=== PATIENT | male | born 1980 | race Caucasian/White ===

== ENCOUNTER 2017-10-19 13:43 | Emergency (ER) | payer MEDICAID ==
[2017-10-19] MEDS ORDERED: HALOPERIDOL LACT 5 MG/ML INJ IM ONE (14:16)
--- NOTE | 2017-10-19 14:18 | EDPHY ---
H & P Time Seen by Provider: 10/19/17 13:59 HPI/ROS: CHIEF COMPLAINT: Acute psychosis, M1, "Fuck off" HISTORY OF PRESENT ILLNESS: 36-year-old male with possible history of schizoaffective disorder or schizophrenia arrives via police on an M1 hold after he was found to be acting erratically in the [employer], threatening physical violence to individuals, thought to be acutely psychotic by police and EMS. Here in emergency department patient is unable to provide history himself as he is quite agitated, pacing, throwing objects in the room, yelling. REVIEW OF SYSTEMS: Review of systems is limited secondary to the patient's agitation PAST MEDICAL & SURGICAL HISTORY: schizoaffective or schizophrenia history SOCIAL HISTORY: Homeless PHYSICAL EXAM (Prior to examination, patient consented to physical exam, hands were washed and my usual and customary physical exam procedures followed) Patient examined after IM Haldol administered as he was post an imminent danger to staff previously. 1) GENERAL: Poorly kept, yelling,foul smelling, threatening behavior 2) HEAD: Normocephalic, atraumatic 3) HEENT: Pupils equal, round, reactive to light bilaterally. Sclera anicteric. 4) NECK: Full range of motion, no meningeal signs. 5) LUNGS: Clear auscultation bilaterally, no wheezes, no rhonchi, no retractions. 6) HEART: Regular rate and rhythm, no murmur, no heave, no gallop. 7) ABDOMEN: No guarding, no rebound, no focal tenderness, 8) MUSCULOSKELETAL: No peripheral edema or discoloration. 9) BACK: No CVA tenderness. 10) SKIN: No rash, no petechiae. 11) Psychiatric: Patient is agitated DIFFERENTIAL DIAGNOSIS: No particular include but limited to depression, suicidal ideation, homicidal ideation, psychosis, peter (Bryant,Nataly Lucia) Constitutional: Initial Vital Signs Temperature (C) 36.6 C 10/19/17 14:13 Heart Rate 74 10/19/17 14:13 Respiratory Rate 18 10/19/17 14:13 Blood Pressure 114/64 10/19/17 14:13 O2 Sat (%) 98 01/13/18 14:13 O2 Delivery Mode Room Air Allergies/Adverse Reactions: No Known Allergies Allergy (Unverified 10/19/17 14:12) Home Medications: Medication Instructions Recorded NK [No Known Home Meds] 10/19/17 Medical Decision Making ED Course/Re-evaluation: 2:19 p.m.: Patient is quite agitated at this time. I am unable to assess him. For the safety of the patient and emergency department staff patient will be given intramuscular Haldol. CORHIO search is negative for this patient. 4:48 p.m.: Patient re-evaluated with serial examinations. He is given IM Haldol at this time he is much more calm. He is sleeping, easily woken. He continues to curse at me. Creatinine kinase was obtained on this patient showing mild nontraumatic rhabdomyolysis. He is also noted to be volume depleted with a BUN creatinine ratio greater than 20. I discussed this case with Dr. Shetty in the ER. Plan will be IV hydration, recheck CK levels later in his emergency department course. 6:00 p.m.: Care turned over to Dr. Shetty (Nataly Hurtado) [id number]: Patient has been seen evaluated by mental health. They do not feel that he needs to be further on an M1 hold. They would like to clear him for discharge. The patient is not suicidal or homicidal. Contracts for safety. I met with him. He is pleasant. He states that he would like to be discharged from the emergency room he would like to go make camp. He has no complaints at this time. He does understand to return emergency room if he has any worsening symptoms questions or concerns. (Loy Rodriguez) Other Provider: 1800 care assumed by me from BIANCA Hurtado. Patient found acutely psychotic at [employer]. Patient has an elevated CK consistent with some mild rhabdomyolysis with normal renal function. He has required significant amount of sedation here. He is given IV fluid hydration. He will need Re checking of his CK to make sure it is improving. [address] patient signed out to Dr. Rodriguez pending reassessment of his CK and mental health evaluation. No issues during my care this patient. (Nicolás Shetty) - Data Points Laboratory Results: Laboratory Results 10/19/17 14:00 10/19/17 14:00 10/20/17 10/19/17 00:56 14:00 Creatine Kinase 1338 IU/L H IU/L (0-224) CK-MB (CK-2) Fraction 7.43 ng/mL H ng/mL (0.00-3.19) CK-MB (CK-2) % 0.6 % % (0.0-4.0) Creatine Kinase Interp NEGATIVE (NEGATIVE) Urine Color YELLOW Urine Appearance HAZY Urine pH 5.0 (5.0-7.5) Ur Specific [place] 1.029 (1.002-1.030) Urine Protein 1+ H (NEGATIVE) Urine Ketones TRACE H (NEGATIVE) Urine Blood NEGATIVE (NEGATIVE) Urine Nitrate NEGATIVE (NEGATIVE) Urine Bilirubin NEGATIVE (NEGATIVE) Urine Urobilinogen 2.0 EU H EU (0.2-1.0) Ur Leukocyte Esterase NEGATIVE (NEGATIVE) Urine RBC 3-5 /hpf H /hpf (0-3) Urine WBC 1-3 /hpf /hpf (0-3) Ur Epithelial Cells NONE SEEN /lpf /lpf (NONE-1+) Urine Bacteria TRACE /hpf H /hpf (NONE SEEN) Hyaline Casts 25-50 /lpf H /lpf (0-1) Urine Mucus 4+ /lpf H /lpf (NONE-1+) Urine Sperm PRESENT /hpf /hpf (NONE SEEN) Urine Glucose NEGATIVE (NEGATIVE) Medications Given: Discontinued Medications Haloperidol Lactate (Haldol Injection) 10 mg IM EDNOW ONE Stop: 10/19/17 14:17 Last Admin: 10/19/17 14:35 Dose: 10 mg Sodium Chloride (Ns) 3,000 mls @ 0 mls/hr IV ONCE ONE PRN Reason: Wide Open Stop: 10/19/17 16:48 Last Admin: 10/19/17 18:46 Dose: Not Given Sodium Chloride (Ns) 1,000 mls @ 0 mls/hr IV ONCE ONE PRN Reason: Wide Open Stop: 10/19/17 16:48 Last Admin: 10/19/17 17:06 Dose: 1,000 mls Sodium Chloride (Ns) 1,000 mls @ 0 mls/hr IV ONCE ONE PRN Reason: Wide Open Stop: 10/19/17 16:49 Last Admin: 10/19/17 17:06 Dose: 1,000 mls Sodium Chloride (Ns) 1,000 mls @ 0 mls/hr IV ONCE ONE PRN Reason: Wide Open Stop: 10/19/17 17:01 Last Admin: 10/19/17 18:47 Dose: 1,000 mls Sodium Chloride (Ns) 1,000 mls @ 0 mls/hr IV ONCE ONE PRN Reason: Wide Open Stop: 10/19/17 21:30 Last Admin: 10/19/17 21:29 Dose: 1,000 mls Departure - Departure Disposition: Home, Routine, Self-Care Clinical Impression: Acute psychosis Rhabdomyolysis Qualifiers: Rhabdomyolysis type: non-traumatic Qualified Code(s): M62.82 - Rhabdomyolysis Condition: Fair Instructions: Rhabdomyolysis (ED) Additional Instructions: 1. Drink lots of fluids stay well-hydrated. 2. Return emergency room if there is any worsening symptoms questions or concerns you do not feel good. 3. Return if you have thoughts of wanting to harm herself or anybody else. Referrals: Patient,NotPresent [Primary Care Provider] - As per Instructions
[2017-10-19 14:19] LABS: PLATELET COUNT 313 10^3/uL (150-400)
[2017-10-19 15:02] LABS: CREATINE KINASE 3387 IU/L (0-224)
[2017-10-19] MEDS ORDERED: NS 1,000 ML IV ONE ×4 (16:47→21:29)
[2017-10-19] MEDS ORDERED: NS 3,000 ML IV ONE (16:47)
[2017-10-19 23:51] VITALS: RESP 16
[2017-10-20 02:03] LABS: CREATINE KINASE 1338 IU/L (0-224)
[2017-10-20 03:50] VITALS: BP 95/65; PULSE 81; TEMP 97.7; O2SAT 94
== END 2017-10-20 03:48 | disposition home or self-care (01) ==
DX: F23 Brief psychotic disorder (principal); M62.82 Rhabdomyolysis
CPT/HCPCS: 80305; G0480; J1630

== ENCOUNTER 2018-06-27 09:21 | Inpatient (IN) | payer MEDICAID, OTHER ==
[2018-06-27] MEDS ORDERED: LORazepam 1 MG TAB PO ONE (09:31)
[2018-06-27] MEDS ORDERED: OLANZapine DISINTEGR 5 MG TAB PO ONE (09:31)
--- NOTE | 2018-06-27 09:34 | EDPHY ---
H & P Time Seen by Provider: 06/27/18 09:24 HPI/ROS: CHIEF COMPLAINT: M1, "Oh man, it's not like that, yes it is" HISTORY OF PRESENT ILLNESS: 37-year-old male possible history of schizoaffective disorder or schizophrenia arrives via police on an M1 hold after he was found outside of a store appeared to be talking to himself and was intermittently agitated acting erratically. He did not threaten physical violence to anyone. Patient has previously been in the emergency department, last date 10/19/2017 which point he was on M1 hold. That time he was also found to be experiencing mild rhabdomyolysis. Here in the emergency department he denies complaints of pain or discomfort. Denies suicidal homicidal ideation. The history is challenging to obtain on this patient as he repeatedly appears to be responding to internal stimuli, will repeatedly talk to and become aggressive with an individual that I am unable to visualize, in the corner of the room. Suspect visual and auditory hallucination. REVIEW OF SYSTEMS: 10 systems reviewed and negative with the exception of the elements mentioned in the history of present illness PAST MEDICAL & SURGICAL HISTORY: Schizophrenia or schizoaffective disorder. Prior rhabdomyolysis history SOCIAL HISTORY: Homeless PHYSICAL EXAM (Prior to examination, patient consented to physical exam, hands were washed and my usual and customary physical exam procedures followed) 1) GENERAL: poorly kept, dirty, foul smelling, pacing, appears to be responding to internal stimuli 2) HEAD: Normocephalic, atraumatic 3) HEENT: Pupils equal, round, reactive to light bilaterally. Sclera anicteric. No raccoon eyes no Velásquez sign. No rhinorrhea. No hemotympanum. No otorrhea. 4) NECK: Full range of motion, no meningeal signs. Midline C-spine pain. 5) LUNGS: Clear auscultation bilaterally, no wheezes, no rhonchi, no retractions. 6) HEART: Regular rate and rhythm, no murmur, no heave, no gallop. 7) ABDOMEN: No guarding, no rebound, no focal tenderness, negative McBurney's, negative Ley's, negative Rovsing's, negative peritoneal sign, 8) MUSCULOSKELETAL: Soft compartments throughout. No ecchymosis or signs of obvious trauma. Moving all extremities, no focal areas of tenderness, no obvious trauma. No peripheral edema or discoloration. 9) BACK: No CVA tenderness, no midline vertebral tenderness, no fluctuance, no step-off, no obvious trauma, no visual or palpable abnormality. 10) SKIN: dirty No rash, no petechiae. 11) Psychiatric: Patient is oriented X 3, intermittently agitated, which appears to be responding to internal stimuli, he will repeatedly turned away from me and have a conversation with someone in the corner of the room, although there is nobody that I can visualize. DIFFERENTIAL DIAGNOSIS: In no particular order include but limited to psychosis, peter, trauma, rhabdomyolysis - Medical/Surgical History Hx Asthma: No Hx Chronic Respiratory Disease: No Hx Diabetes: No Hx Cardiac Disease: No Hx Renal Disease: No Hx Cirrhosis: No Hx Alcoholism: No Hx HIV/AIDS: No Hx Splenectomy or Spleen Trauma: No Other PMH: Non Compliant With Psych Meds, Schitzophrenia - Social History Smoking Status: Unknown if ever smoked Constitutional: Initial Vital Signs Temperature (C) 36.6 C 06/27/18 09:21 Heart Rate 86 06/27/18 09:21 Respiratory Rate 16 06/27/18 09:21 Blood Pressure 110/75 06/27/18 09:21 O2 Sat (%) 96 06/27/18 09:21 O2 Delivery Mode Room Air Allergies/Adverse Reactions: No Known Allergies Allergy (Unverified 10/19/17 14:12) Home Medications: Medication Instructions Recorded NK [No Known Home Meds] 10/19/17 Medical Decision Making ED Course/Re-evaluation: 9:34 a.m.: I reviewed the patient's old medical records. Does appear to be acutely psychotic and is in on an M1 hold. Will obtain laboratory studies including CK as he has prior history of rhabdomyolysis and is currently agitated. He does agree at this time to oral antipsychotic. I saw this patient independently based on established practice protocols. Care of patient under supervision of secondary supervising physician Dr Ruano with whom I discussed case. 10:06 a.m.: Patient declined oral medication. He has previously responded well to 10 mg of intramuscular Haldol which will be administered. 12:20 p.m.: Patient comp cooperative. His CK returned at this time of 23,000. He has a orior history of rhabdomyolysis. He is unable provide history of intoxicants use. Awaiting urine from the patient. No toxicology results beyondnegative serum acetaminophen, salicylate, alcohol levels. Will plan on admission. Case discussed with Dr. Ruano. IV fluids going at this time 1:15 p.m.: Consultation with hospitalist Dr. Gr who will admit patient to the ICU under his care - Data Points Laboratory Results: Laboratory Results 06/27/18 09:50 06/27/18 09:50 06/27/18 06/27/18 09:50 09:50 WBC 11.51 10^3/uL H 10^3/uL (3.80-9.50) RBC 4.70 10^6/uL 10^6/uL (4.40-6.38) Hgb 15.0 g/dL g/dL (13.7-17.5) Hct 43.3 % % (40.0-51.0) MCV 92.1 fL fL (81.5-99.8) MCH 31.9 pg pg (27.9-34.1) MCHC 34.6 g/dL g/dL (32.4-36.7) RDW 12.3 % % (11.5-15.2) Plt Count 220 10^3/uL 10^3/uL (150-400) MPV 9.9 fL fL (8.7-11.7) Neut % (Auto) 72.2 % % (39.3-74.2) Lymph % (Auto) 17.5 % % (15.0-45.0) Josephine % (Auto) 9.1 % % (4.5-13.0) Eos % (Auto) 0.1 % L % (0.6-7.6) Baso % (Auto) 0.3 % % (0.3-1.7) Nucleat RBC Rel Count 0.0 % % (0.0-0.2) Absolute Neuts (auto) 8.30 10^3/uL H 10^3/uL (1.70-6.50) Absolute Lymphs (auto) 2.02 10^3/uL 10^3/uL (1.00-3.00) Absolute Monos (auto) 1.05 10^3/uL H 10^3/uL (0.30-0.80) Absolute Eos (auto) 0.01 10^3/uL L 10^3/uL (0.03-0.40) Absolute Basos (auto) 0.04 10^3/uL 10^3/uL (0.02-0.10) Absolute Nucleated RBC 0.00 10^3/uL 10^3/uL (0-0.01) Immature Gran % 0.8 % % (0.0-1.1) Immature Gran # 0.09 10^3/uL 10^3/uL (0.00-0.10) Sodium 142 mEq/L mEq/L (135-145) Potassium 4.0 mEq/L mEq/L (3.3-5.0) Chloride 101 mEq/L mEq/L (97-110) Carbon Dioxide 31 mEq/l mEq/l (22-31) Anion Gap 10 mEq/L mEq/L (8-16) BUN 27 mg/dL H mg/dL (7-23) Creatinine 0.7 mg/dL mg/dL (0.7-1.3) Estimated GFR > 60 Glucose 81 mg/dL mg/dL (70-100) Calcium 9.8 mg/dL mg/dL (8.5-10.4) Creatine Kinase 08240 IU/L H IU/L (0-224) CK-MB (CK-2) Fraction 35.30 ng/mL H ng/mL (0.00-4.55) CK-MB (CK-2) % 0.1 % % (0.0-4.0) Creatine Kinase Interp NEGATIVE (NEGATIVE) Salicylates < 1.0 mg/dL L mg/dL (2.0-20.0) Acetaminophen < 10 mcg/mL L mcg/mL (10-30) Ethyl Alcohol < 10 mg/dL mg/dL (0-10) Medications Given: Discontinued Medications Haloperidol Lactate (Haldol Injection) 10 mg IM EDNOW ONE Stop: 06/27/18 10:06 Last Admin: 06/27/18 10:11 Dose: 10 mg Sodium Chloride (Ns) 2,000 mls @ 0 mls/hr IV ONCE ONE PRN Reason: Wide Open Stop: 06/27/18 12:23 Last Admin: 06/27/18 12:30 Dose: 2,000 mls Lorazepam (Ativan) 1 mg PO EDNOW ONE Stop: 06/27/18 09:32 Last Admin: 06/27/18 10:01 Dose: Not Given Olanzapine (Zyprexa Zydis) 5 mg PO EDNOW ONE Stop: 06/27/18 09:32 Last Admin: 06/27/18 10:01 Dose: Not Given Departure - Departure Disposition: [facility] Clinical Impression: Acute psychosis Rhabdomyolysis Qualifiers: Rhabdomyolysis type: non-traumatic Qualified Code(s): M62.82 - Rhabdomyolysis Condition: Fair
[2018-06-27] MEDS ORDERED: HALOPERIDOL LACT 5 MG/ML INJ IM ONE (10:05)
[2018-06-27 10:11] LABS: PLATELET COUNT 220 10^3/uL (150-400)
[2018-06-27 12:16] LABS: CREATINE KINASE 23823 IU/L (0-224)
[2018-06-27] MEDS ORDERED: NS 2,000 ML IV ONE (12:22)
[2018-06-27] MEDS ORDERED: ONDANSETRON 4 MG/2 ML VIAL IVP PRN (13:21)
[2018-06-27] MEDS ORDERED: ONDANSETRON DISINTEGRATING 4 MG TAB PO PRN (13:21)
[2018-06-27] MEDS ORDERED: ACETAMINOPHEN 325 MG TAB PO PRN (13:21)
[2018-06-27] MEDS ORDERED: HALOPERIDOL LACT 5 MG/ML INJ IVP PRN ×2 (13:23→14:19)
[2018-06-27] MEDS ORDERED: LORazepam 2 MG/ML INJ IVP PRN (14:19)
--- NOTE | 2018-06-27 14:45 | ASMTLACE ---
LISA Acuity / Level of Answers: Yes Care: Did the patient have an inpatient admission? # of Emergency department Answers: 1-2 visits in the last 6 months Social determinants Answers: Homelessness (street, senior care) Mental health diagnosis (anxiety, depression, pers onality disorders, etc.) Lack of community resources and/or lack of social support (no pcp, lives alone, transportation, dominique d) Score: 14 Date Signed: 06/27/2018 02:44 PM Electronically Signed By:Debbi Sharma RN
[2018-06-27] MEDS: NS 1,000 ML IV SCH ×2 (16:48→20:30)
--- NOTE | 2018-06-27 18:51 | PDGENHP ---
History and Physical - Chief Complaint Acute agitation - History of Present Illness PCP: Unknown HPI: 37 yo M p/w acute agitation and disorganized behavior characterized as talking to self, erratic movements, and visible agitation in public on the date of presentation, brought to [facility] ED by master. He did not have any violent behavior, per report. Upon arrival, he appeared to be responding to internal stimuli, w/ suspected auditory/visual hallucinations based on his behavior. He otherwise could not provide any history, and, in an attempt to de-escalate his agitation, he received 10mg IV haldol and subsequently became somnolent. He was placed on M1 hold, but found to have severe rhabdomyolysis w/ a CPK of 23,000. History Information - Allergies/Home Medication List Allergies/Adverse Reactions: No Known Allergies Allergy (Unverified 10/19/17 14:12) Home Medications: NK [No Known Home Meds] 10/19/17 [Last Taken Unknown] I have personally reviewed and updated: family history, medical history, social history, surgical history - Past Medical History Additional medical history: reportedly schizoaffective d/o or schizophrenia w/ most recent presentation to [facility] 10/24 for psychosis - Surgical History Additional surgical history: unable to obtain - Family History Additional family history: unable to obtain - Social History Smoking Status: Unknown if ever smoked Additional social history: unable to obtain Review of Systems Review of Systems: ROS: 10pt was reviewed & negative except for what was stated in HPI & below Neurological: Reports: other (agitation, AH/VH, erratic behavior) Physical Exam Physical Exam: Temp Pulse Resp BP Pulse Ox 36.7 C 92 21 H 90/46 L 93 06/27/18 14:46 06/27/18 18:00 06/27/18 18:00 06/27/18 18:00 06/27/18 18:00 Constitutional: unkempt, other (somnolent, malodorous) Eyes: PERRL, anicteric sclera, scleral injection Ears, Nose, Mouth, Throat: dry mucous membranes Cardiovascular: edema (trace bilat LE), No systolic murmur, No irregularly irregular, No tachycardia Respiratory: no respiratory distress, no rales or rhonchi, clear to auscultation Gastrointestinal: normoactive bowel sounds, soft, non-tender abdomen, no palpable masses, No distension Skin: other (non-raised, erythema on bilat dorsums of hands, moribiliform in appearance w/ scattered abrasions on ventral surfaces but no overt cut malcolm) Musculoskeletal: other (no muscle rigidity) Neurologic: other (AAOx0, not responding to tactile stimuli, withdraws from painful stimuli) Psychiatric: other (not following commands, mumbling incoherently) Lab Data & Imaging Review 06/27/18 09:50 06/27/18 09:50 WBC 11.51 10^3/uL (3.80-9.50) H 06/27/18 09:50 RBC 4.70 10^6/uL (4.40-6.38) 06/27/18 09:50 Hgb 15.0 g/dL (13.7-17.5) 06/27/18 09:50 Hct 43.3 % (40.0-51.0) 06/27/18 09:50 MCV 92.1 fL (81.5-99.8) 06/27/18 09:50 MCH 31.9 pg (27.9-34.1) 06/27/18 09:50 MCHC 34.6 g/dL (32.4-36.7) 06/27/18 09:50 RDW 12.3 % (11.5-15.2) 06/27/18 09:50 Plt Count 220 10^3/uL (150-400) 06/27/18 09:50 MPV 9.9 fL (8.7-11.7) 06/27/18 09:50 Neut % (Auto) 72.2 % (39.3-74.2) 06/27/18 09:50 Lymph % (Auto) 17.5 % (15.0-45.0) 06/27/18 09:50 [place] % (Auto) 9.1 % (4.5-13.0) 06/27/18 09:50 Eos % (Auto) 0.1 % (0.6-7.6) L 06/27/18 09:50 Baso % (Auto) 0.3 % (0.3-1.7) 06/27/18 09:50 Nucleat RBC Rel Count 0.0 % (0.0-0.2) 06/27/18 09:50 Absolute Neuts (auto) 8.30 10^3/uL (1.70-6.50) H 06/27/18 09:50 Absolute Lymphs (auto) 2.02 10^3/uL (1.00-3.00) 06/27/18 09:50 Absolute Monos (auto) 1.05 10^3/uL (0.30-0.80) H 06/27/18 09:50 Absolute Eos (auto) 0.01 10^3/uL (0.03-0.40) L 06/27/18 09:50 Absolute Basos (auto) 0.04 10^3/uL (0.02-0.10) 06/27/18 09:50 Absolute Nucleated RBC 0.00 10^3/uL (0-0.01) 06/27/18 09:50 Immature Gran % 0.8 % (0.0-1.1) 06/27/18 09:50 Immature Gran # 0.09 10^3/uL (0.00-0.10) 06/27/18 09:50 Sodium 142 mEq/L (135-145) 06/27/18 09:50 Potassium 4.0 mEq/L (3.3-5.0) 06/27/18 09:50 Chloride 101 mEq/L (97-110) 06/27/18 09:50 Carbon Dioxide 31 mEq/l (22-31) 06/27/18 09:50 Anion Gap 10 mEq/L (8-16) 06/27/18 09:50 BUN 27 mg/dL (7-23) H 06/27/18 09:50 Creatinine 0.7 mg/dL (0.7-1.3) 06/27/18 09:50 Estimated GFR > 60 06/27/18 09:50 Glucose 81 mg/dL (70-100) 06/27/18 09:50 Calcium 9.8 mg/dL (8.5-10.4) 06/27/18 09:50 Creatine Kinase 68970 IU/L (0-224) H 06/27/18 09:50 CK-MB (CK-2) Fraction 35.30 ng/mL (0.00-4.55) H 06/27/18 09:50 CK-MB (CK-2) % 0.1 % (0.0-4.0) 06/27/18 09:50 Creatine Kinase Interp NEGATIVE (NEGATIVE) 06/27/18 09:50 Salicylates < 1.0 mg/dL (2.0-20.0) L 06/27/18 09:50 Acetaminophen < 10 mcg/mL (10-30) L 06/27/18 09:50 Ethyl Alcohol < 10 mg/dL (0-10) 06/27/18 09:50 Assessment & Plan Assessment: 37 yo M p/w acute psychosis c/b acute rhabdomyolysis and acute toxic encephalopathy Plan: # Psychosis. Acute, evidenced by patient responding to internal stimuli, non- directible behavior, agitation - requiring M1 hold, will require TLC eval for inpatient behavior health following medical stabilization - give schedule zyprexa tonight 10mg - PRN haldol, will check EKG to ensure no significant QT prolongation - unclear precipitant, will check RVP to ensure nothing viral - obtain records from [facility], if patient has been a client, to gauge psych hx # Rhabdomyolysis. Acute, unclear precipitant, reviewed outside records including ED report by Dr. Suleman Shetty 10/19/17 reporting presentation for psychosis w/ mild rhabdo, condition improved after 10mg IV haldol and IVF, unclear precipitant on that presentation as well, THC positive, rest of tx negative, CORHIO w/o other psych/medical hospitalizations - start NS 200cc/hr - monitor renal fxn closely, if worsening, will change to bicarb - get UA to eval for myoglobin - get tox screen to eval for amphetamines; if negative, consider possibility of bath salt ingestion, as this results in negative tox screen and can have life- threatening rhabdo # Acute Encephalopathy. 2/2 toxic effect of high dose haldol required for safety /sedation, resulting in dense somnolence and inability to obtain any additional hx - ongoing reassessments - if WBC worsening, febrile, or o2 requirements, check CXR due to risk for aspiration - central pulse ox monitoring Diet. NPO PPx. High risk, lovenox 40 Code. Full Dispo. ADD uncertain, anticipated LOS > 48hrs for reasonable medical necessity, patient critically ill from severe rhabdo and encephalopathy with high risk for worsening morbidity/mortality. Spent 40 minutes of critical care time total, specifically treating above, coordinating w/ his staff field engineer in ED.
[2018-06-27] MEDS ORDERED: OLANZapine DISINTEGR 10 MG TAB PO SCH (21:00)
[2018-06-28 06:03] LABS: PLATELET COUNT 135 10^3/uL (150-400)
[2018-06-28] MEDS: NS 1,000 ML IV SCH (06:20)
[2018-06-28 06:58] LABS: CREATINE KINASE 5085 IU/L (0-224)
[2018-06-28 07:54] VITALS: BP 108/72
[2018-06-28] MEDS ORDERED: ENOXAPARIN 40 MG/0.4 ML SYR SC SCH (09:00)
--- NOTE | 2018-06-28 09:46 | PDMN ---
Medical Necessity Medical necessity: [facility] [id number] Other psychotic d/o, adult IP care and [facility] General Admission: 37 y/o w/ acute psychosis, M1 hold, acute rhabdomyolysis, unclear precipitant, acute encephalopathy, anticipate LOS>48hrs for reasonable med necessity, pt critically ill from severe rhabdo and encephalopathy w/ high risk for worsening morbidity/mortality.
--- NOTE | 2018-06-28 17:07 | ASDISCHSUM ---
Discharge Information Plan Status:Homeless/Alf Medically Cleared to Leave:06/28/2018 Discharge Date:06/28/2018 12:25 PM CM D/C Disposition:Home, Routine, Self-Care ADT D/C Disposition:Home, Routine, Self-Care Projected Discharge Date:06/28/2018 12:25 PM Transportation at D/C:Bus Ticket Discharge Delay Reason: Follow-Up Date:06/28/2018 12:25 PM Discharge Slot: Final Diagnosis:Methamphetamine psychosis Placement Information Patient Contact Information Contact Name:CHICHOTRUMAN Relationship: Address: Home Phone: Work Phone: City: Alternate Phone: State/Zip Code: Email: Financial Information Financial Class:Medicaid Primary Plan Desc:[employer] [place] [place] Primary Plan Number:[id number] Secondary Plan Desc: Secondary Plan Number: Assessment Information LACE LACE Acuity / Level of Answers: Yes Care: Did the patient have an inpatient admission? # of Emergency department Answers: 1-2 visits in the last 6 months Social determinants Answers: Homelessness (street, care home) Mental health diagnosis (anxiety, depression, pers onality disorders, etc.) Lack of community resources and/or lack of social support (no pcp, lives alone, transportation, dominique d) Score: 14 Date Signed: 06/27/2018 02:44 PM Electronically Signed By:Debbi Sharma RN Case Management Discharge Plan Note Case Management Discharge Discharge Order Complete? Answers: Yes Transportation Arranged Answers: Bus Tokens Discharge Comments Notes: Pt is homeless and admitted for methamphetamine induced psychosis. Pt was brought in by the police after waving and yelling at cars. Pt given various resource lists for homeless needs such as [facility] walk-in hours, dental care lists and a bus voucher to get to the [facility]. A bed was reserved for him and he was told he could check in after 5pm. No further CM needs noted at this time. Date Signed: 06/28/2018 05:06 PM Electronically Signed By:Johanny Guy Intervention Information
--- NOTE | 2018-06-28 18:18 | GDS ---
DISCHARGE DIAGNOSES: 1. Agitation and hallucinations due to acute drug intoxication. 2. Rhabdomyolysis. 3. Toxic encephalopathy. 4. Psychosis, resolved. HISTORY: Nicolás is a 37-year-old homeless male admitted with acute agitation, erratic behavior, and yelling at people in a public place. Brought to [facility] Emergency room by police. There was never any violent behavior. He was responding to auditory and visual hallucinations. He was admitted to the [facility] as gravely disabled on an M1 hold. He was incidentally noted to have rhabdomyolysis with a CPK of 23,000. He was admitted overnight on observation and rapidly improved, and by morning he was alert and orient ed x3 with no further mental status changes. His tox screen was positive for amphetamines. I think this is all consistent with an acute drug intoxication. Since he completely resolved, he was stable for discharge home, and the M1 hold was held as he did not appear to have an underlying psychiatric p roblem at this time. His CPK improved after overnight hydration down to 5000, and his renal function is normal. DISCHARGE MEDICATIONS: Please see computer record for full detailed list. There are no new medicati ons given at the time of hospital discharge. ADDITIONAL DISCHARGE INSTRUCTIONS: 1. The patient was counseled regarding his tox screen being positive for amphetamines even though he denied drug ingestion, and it was recommended he discontinue use. 2. HIV pending at discharge. The patient was informed of this pending result and should follow up w [facility] primary care. Greater than 30 minutes time spent arranging this discharge. Patient seen and examined by me on the day of discharge. The patient was admitted to inpatient status but improved more rapidly than anticipated and only stay ed 1 night. /[id number]/MODL
[2018-06-30 02:06] LABS: HIV TYPE 1 AND 2 NEGATIVE (NEGATIVE)
--- NOTE | 2018-07-01 17:07 | CPEKG ---
Test Reason : OPEN Blood Pressure : / mmHG Vent. Rate : 088 BPM Atrial Rate : 088 BPM P-R Int : 162 ms QRS Dur : 095 ms QT Int : 386 ms P-R-T Axes : 073 113 073 degrees QTc Int : 467 ms Sinus rhythm Right axis deviation Low voltage, extremity leads Nonspecific T abnrm, anterolateral leads Confirmed by Harvey Fisher ([id number]) on 07/01/2018 5:06:31 PM Referred By: Confirmed By:Harvey Fisher
== END 2018-06-28 12:25 | disposition home or self-care (01) | DRG 812 ==
LOC: EEVIPCON 13:21 → F2N 14:39
PROVIDERS: ADMIT Internal Medicine; ATTEND Internal Medicine
DX: T43.621A Poisoning by amphetamines, accidental (unintentional), initial encounter (principal); R44.3 Hallucinations, unspecified; R45.1 Restlessness and agitation; M62.82 Rhabdomyolysis; F25.9 Schizoaffective disorder, unspecified; Z59.0 Homelessness
CPT/HCPCS: 80305; G0480; J1630